=== PATIENT | female | born 2000 | race Two or more races ===

== ENCOUNTER 2025-07-01 20:32 | Emergency (ER) | payer OTHER ==
[~2025-07-01] VITALS: Ht 154.9 cm; Wt 70.1 kg
--- NOTE | 2025-07-01 21:30 | ED.PDOC ---
SOCIAL SCIENCES RESEARCH SCIENTIST HPI Comments 24 year old female presents to the ED with a chief complaint of pelvic pain onset today (07/01/25) around 11:00. Patient states she bent down, when she got up she began experiencing cramping sensation, worse on RLQ region. She is currently 9 weeks , P:1, has seen OBGYN. Denies any PMHx as well as vaginal bleeding, vaginal discharge, fall, injury, headache, dizziness, dysuria, hematuria, nausea, vomiting. No other symptoms or modifying factors present at this time. Chief Complaint: Pelvic Pain Time Seen by MD: 21:25 Reviewed Notes: Medications, Allergies Allergies: Coded Allergies: NO KNOWN ALLERGIES (Unverified , 07/01/25) Information Source: Patient Mode of Arrival: Ambulatory Timing: Hours Prehospital treatment: None Severity: Moderate Vaginal Discharge: None Vaginal Lesions: None Vaginal Mass: None Associated Signs and Symptoms: Cramping Past Medical History PAST MEDICAL HISTORY: Denies Surgical History: Denies all surgeries ADMISSIONS ASSISTANT History: No Pertinent ADMISSIONS ASSISTANT History Family History Family History: Reviewed,noncontributory to illness, No family hx of Cancer, No family hx of DM, No family hx of Heart bri, No family hx of HTN, No family hx ofKidney bri, No family hx of Liver bri, No family hx of Lung bri, No family hx of Stroke Social History Smoker: Non-Smoker Alcohol: Denies ETOH Use Drugs: Denies Drug Use Lives In: Home Constitutional: denies: chills, diaphoresis, fatigue, fever, malaise, sweats, weakness, others EENTM: denies: blurred vision, double vision, ear bleeding, ear discharge, ear drainage, ear pain, ear ringing, eye pain, eye redness, hearing loss, mouth pain, mouth swelling, nasal discharge, nose bleeding, nose congestion, nose pain, photophobia, tearing, throat pain, throat swelling, voice changes, others Respiratory: denies: cough, hemoptysis, orthopnea, SOB at rest, shortness of breath, SOB with excertion, stridor, wheezing, others Cardiovascular: denies: chest pain, dizzy spells, diaphoresis, Dyspnea on exertion, edema, irregular heart beat, left arm pain, lightheadedness, palpi tations, PND, syncope, others Gastrointestinal: denies: abdomen distended, abdominal pain, blood streaked bowels, constipated, diarrhea, dysphagia, difficulty swallowing, hematemesis, melena, nausea, poor appetite, poor fluid intake, rectal bleeding, rectal pain, vomiting, others Genitourinary: reports: pain (pelvic), ; denies: abnormal vagina bleeding, burning, dyspareunia, dysuria, flank pain, frequency, hematuria, incontinence, vagina discharge, urgency, others Neurological: denies: dizziness, fainting, headache, left sided numbness, left sided weakness, numbness, paresthesia, pre-existing deficit, right sided numbness, right sided weakness, seizure, speech problems, tingling, tremors, weakness, others Musculoskeletal: denies: back pain, gout, joint pain, joint swelling, muscle pain, muscle stiffness, neck pain, others Integumetry: denies: bruises, change in color, change in hair/nails, dryness, laceration, lesions, lumps, rash, wounds, others Allergic/Immunocompromised: denies: Difficulty Healing, Frequent Infections, Hives, Itching, others Hematologic/Lymphatic: denies: anemia, blood clots, easy bleeding, easy bruising, swollen glands, others Endocrine: denies: excessive hunger, excessive sweating, excessive thirst, excessive urination, flushing, intolerance to cold, intolerance to heat, unexplained weight gain, unexplained weight loss, others Psychiatric: denies: anxiety, bipolar disorder, depression, hopeless, panic disorder, schizophrenia, sleepless, suicidal, others All Other Systems: Reviewed and Negative Physical Exam General Appearance: Normal HEENT: Normal ENT Inspection, Pharynx Normal, TMs Normal Neck: Full Range of Motion, Non-Tender, Normal, Normal Inspection Respiratory: Chest Non-Tender, Lungs Clear, No Accessory Muscle Use, No Respiratory Distress, Normal Breath Sounds Cardiovascular: No Edema, No JVD, No Murmur, No Gallop, Normal Peripheral Pulses, Regular Rate/Rhythm Breast Exam: Deferred Gastrointestinal: No Organomegaly, Non Tender, No Pulsatile Mass, Normal Bowel Sounds, Soft Genitalia: Deferred Pelvic: Deferred Rectal: Deferred Extremities: No calf tenderness, Normal capillary refill, Normal inspection, Normal range of motion, Non-tender, No pedal edema Musculoskeletal : Apperance: Normal Neurologic: Alert, blending machine feeder II-XII nml as Tested, No Motor Deficits, Normal Affect, Normal Mood, No Sensory Deficits Cerebellar Function: Normal Reflexes: Normal Skin: Dry, Normal Color, Warm Lymphatic: No Adenopathy Was a procedure done? Was a procedure done?: No X-Ray, Labs, Meds, VS Vital Signs Date Time Temp Pulse Resp B/P (MAP) Pulse Ox O2 Delivery O2 Flow Rate FiO2 07/01/25 20:33 98.8 71 18 105/67 98 98.8 Time of 1ST Reevaluation: 21:55 Reevaluation 1ST: Unchanged Patient Education/Counseling: Diagnosis, Treatment, Prognosis Family Education/Counseling: No Family Present Critical Care Note Critical Care Time?: No Stability Stability form required: No I personally scribed for CLARITA DONALDSON ([email or web address]) on 07/01/25 at 21:30. Electronically submitted by Laine Fields ([email or web address]). CLARITA DONALDSON Jul 01, 2025 21:30
--- NOTE | 2025-07-02 00:58 | DVH ---
OB ULTRASOUND <14 WEEKS: HISTORY: pelvic cramps TECHNIQUE: Multiple real-time grayscale sonographic images of the pelvis with duplex Doppler color f low, spectral and M-mode analysis. FINDINGS: Uterus measures 12.7 x 9.3 x 5.1 cm. Intrauterine noted with gestational sac of 5.4 cm and CRL of 2.6 cm with average sonographi c gestational age of 10 weeks and 3 days. REJI of 01/24/2025. heart rate of 180 beats per [address]evie te. Yolk sac is noted. Right ovary measures 1.7 x 1.2 x 1.4 cm and left ovary measures 3.6 x 2.4 x 4.1 cm. A left ovarian cy st measures 1.4 x 1.6 x 1.8 cm. IMPRESSION: 1. Single live intrauterine with average gestational age of 10 weeks and 3 days. REJI of . 2. heart rate of 180 beats per minute. 3. Left ovarian simple cyst measuring 1.8 cm.
[2025-07-02 02:22] VITALS: BP 100/58; PULSE 76; RESP 20; TEMP 97.8; O2SAT 99
[2025-07-02 08:55] LABS: Urine Amorphous Crystal FEW /hpf (None Seen); Urine Protein, UAD Negative (Negative)
== END 2025-07-02 02:26 | disposition home or self-care (01) ==
LOC: ER 20:32
DX: O26.891 Other specified pregnancy related conditions, first trimester (principal); R10.2 Pelvic and perineal pain; Z3A.10 10 weeks gestation of pregnancy
CPT/HCPCS: 36415; 76801; 81001; 81025; 84702